=== PATIENT | male | born 1980 | race Caucasian/White ===

== ENCOUNTER 2023-07-07 18:53 | Emergency (ER) | payer OTHER, SELFPAY ==
--- NOTE | ~2023-07-07 | XR_ITS ---
EXAMINATION: XR knee RT min 4V DATE: 07/07/2023 19:11 INDICATION: Rectal trauma to the right patella TECHNIQUE: Anteroposterior, sunrise, oblique and crosstable lateral views of the right knee were obta ined COMPARISON: None. FINDINGS: Comminuted patellar fracture with fragmentation of the inferior third of the patella. There is 4 cm p roximal distraction of the larger cephalad patellar fragment. There is also displacement between the smaller fragments comprising the inferior third of the patella. No other fractures identified. Joint spaces in the medial and lateral compartments appear normal. No evident right knee joint effusion. IMPRESSION: 1. Comminuted intra-articular fracture involving the inferior third of the patella with 4 cm proximal distraction of the larger cephalad fragment. Reviewed, dictated and finalized at location A. [facility] [employer] IMPRESSION: 1. Comminuted intra-articular fracture involving the inferior third of the wiley lla with 4 cm proximal distraction of the larger cephalad fragment.
--- NOTE | 2023-07-07 19:17 | ED.GENADULT ---
HPI - General Adult General Chief complaint: Extremity Injury, Lower Stated complaint: right knee injujry Time Seen by Provider: 07/07/23 19:13 Source: patient Mode of arrival: ambulatory Limitations: no limitations History of Present Illness HPI narrative: this is a 43-year-old male who presents to the ED with chief complaint of a right knee injury occurring just prior to arrival. Patient was playing hockey when he took fall and fell directly onto the right knee. Denies numbness, weakness, any further sites of pain or injury. Related Data Allergies Allergy/AdvReac Type Severity Reaction Status Date / Time Penicillins Allergy Hives Verified 07/07/23 18:56 Review of Systems Review of Systems: All systems as dictated in HPI Exam Narrative: GENERAL: Well-appearing, well-nourished, and in no acute distress. HEAD: Normocephalic, atraumatic. EYES: PERRLA and EOMI. ENT: Nares clear, no rhinorrhea or epistaxis. Mucous membranes moist. Oropharynx without tonsillar hypertrophy exudate or other lesions. NECK: Supple. No adenopathy or masses. CHEST: No respiratory distress. Clear to auscultation. No wheezes rales or rhonchi HEART: Regular rate and rhythm. No murmur heard. Normal peripheral pulses. ABDOMEN: Soft, nontender, nondistended, normal active bowel sounds. MSK: RLE: Swelling and tenderness throughout the right knee. There is obvious deformity of the patella. Extensor mechanism disrupted. Neurovascularly intact distally. LLE: Benign SKIN: Warm, dry, no rash. NEURO: Alert and oriented x3. No focal deficits. PSYCH: Normal mood and affect. Course Vital Signs Vital signs: Vital Signs Pulse Rate 81 07/07/23 19:23 Respiratory Rate 16 07/07/23 19:23 Blood Pressure 131/84 07/07/23 19:23 Pulse Oximetry 98 07/07/23 19:23 Pulse Rate 62 07/07/23 21:21 Respiratory Rate 15 07/07/23 21:21 Blood Pressure 129/76 07/07/23 21:21 Pulse Oximetry 98 07/07/23 21:21 Medical Decision Making MDM Narrative Medical decision making narrative: This is a 43-year-old male who presents to the ED with chief complaint of right knee injury occurring just prior to arrival. 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 Vitals are normal. Exam shows swelling and indent at the patella. right knee x-ray: 1. Comminuted intra-articular fracture involving the inferior third of the patella with 4 cm proximal distraction of the larger cephalad fragment. . Spoke with Dr. Zambrano (ortho), who recommends having the patient placed in knee immobilizer and follow-up in clinic. Knee immobilizer placed. Crutches given. Prescription for [place] given for breakthrough pain. Pt will be discharged in stable condition. Return precautions given and supportive measures discussed. Pt is understanding and agreeable with plan for discharge and follow-up with ortho Vital Signs Vital Signs: Vital Signs Pulse Rate 81 07/07/23 19:23 Respiratory Rate 16 07/07/23 19:23 Blood Pressure 131/84 07/07/23 19:23 Pulse Oximetry 98 07/07/23 19:23 Pulse Rate 62 07/07/23 21:21 Respiratory Rate 15 07/07/23 21:21 Blood Pressure 129/76 07/07/23 21:21 Pulse Oximetry 98 07/07/23 21:21 Discharge Plan Discharge Clinical Impression: Closed comminuted fracture of right patella Patient Disposition: Home, Self-Care Condition: Stable Instructions: Antibiotic Form Additional Instructions: Your exam and imaging today show evidence of comminuted patellar fracture. Please keep the knee immobilized and follow up with Orthopedics. Use Tylenol and ibuprofen at baseline for pain. Use [place] for breakthrough pain. If you have any new or worsening symptoms like uncontrollable pain, spine please return to the ER for further evaluation. Prescriptions: New hydrocodone-acetaminophen 5-325 mg tablet 1 tablet PO Q8H PRN (Reason: pain) Qty: 12 0RF
[2023-07-07 19:23] VITALS: BP 131/84; PULSE 81; RESP 16; O2SAT 98
[2023-07-07 21:21] VITALS: BP 129/76; PULSE 62; RESP 15; O2SAT 98
== END 2023-07-07 21:21 | disposition home or self-care (01) ==
PROVIDERS: Emergency Provider Physician Assistant
DX: S82.041A Displaced comminuted fracture of right patella, initial encounter for closed fracture (principal); W19.XXXA Unspecified fall, initial encounter; Y93.22 Activity, ice hockey
CPT/HCPCS: 73564; 99284